=== PATIENT | female | born 1975 | race Caucasian/White ===

== ENCOUNTER 2020-01-05 08:24 | Day surgery (SDC) | payer BC ==
[~2020-01-05] VITALS: Ht 167.6 cm; Wt 139.3 kg
[2020-01-05 08:33] LABS: HCG,QUAL RESULT NEGATIVE (NEGATIVE)
[2020-01-05] MEDS: MIDAZOLAM HCL 5 MG/5 ML VIAL ONE ×3 (10:07→10:12)
[2020-01-05] MEDS: MEPERIDINE HCL/PF 100 MG/ML AMP ONE ×3 (10:07→10:16)
[2020-01-05] MEDS ORDERED: GLYCOPYRROLATE 0.2 MG/ML VIAL ONE ×2 (10:09→10:10)
[2020-01-05] MEDS ORDERED: MIDAZOLAM HCL 5 MG/5 ML VIAL ONE (10:09)
[2020-01-05] MEDS ORDERED: SIMETHICONE 40 MG/0.6 ML ML ONE (10:10)
[2020-01-05 14:32] VITALS: BP_SYST 114
== END 2020-01-05 11:43 | disposition home or self-care (01) ==
LOC: SDS 08:24
PROVIDERS: ATTEND Colon & Rectal Surgery
DX: Z12.11 Encounter for screening for malignant neoplasm of colon (principal); D35.02 Benign neoplasm of left adrenal gland; K21.9 Gastro-esophageal reflux disease without esophagitis; E78.5 Hyperlipidemia, unspecified; E55.9 Vitamin D deficiency, unspecified; I10 Essential (primary) hypertension; E11.9 Type 2 diabetes mellitus without complications; B96.81 Helicobacter pylori [H. pylori] as the cause of diseases classified elsewhere; E66.01 Morbid (severe) obesity due to excess calories; Z68.43 Body mass index [BMI] 50.0-59.9, adult; Z98.84 Bariatric surgery status; Z88.8 Allergy status to other drugs, medicaments and biological substances; Z79.899 Other long term (current) drug therapy
CPT/HCPCS: 36415; 43239; 45378; 84703; 87081; 88305; G0378; J2175; J2250; J7030; J3490